=== PATIENT | male | born 1935 | race Caucasian/White ===

== ENCOUNTER 2021-06-09 17:20 | Emergency (ER) | payer MEDICARE ==
--- NOTE | 2021-06-09 18:01 | EDM.PDOC ---
ED HPI GENERAL MEDICAL PROBLEM - General Chief Complaint: Neurological Problem Stated Complaint: confusion, dizzy, shakey Time Seen by Provider: 06/09/21 17:53 Source of Information: Reports: Patient, Family (Spouse) History Limitations: Reports: No Limitations - History of Present Illness INITIAL COMMENTS - FREE TEXT/NARRATIVE: Felipe is a 85-year-old male who was from [place], [place] presenting to the ED for evaluation of transient altered mental status. The patient was at the casino in [place] today and was driving home with his when he suddenly became disoriented and dizzy. He kept repeatedly saying to his I do not aware of him driving it on or were at. His instructed him to pull the vehicle over and she sought help. states that his altered mental status lasted about 20 to 30 minutes and occurred around 1430 hrs. today (3-1/2 hours prior to arrival). The patient did not experience any weakness, numbness or tingling but did have disorientation. According to the patient and his he has had increasing episodes of dizziness that have been transient for about the last 6 weeks. The was concerned that he may have had a "mini stroke". By the time they arrived in [place], [place] the patient had regained orientation and was able to drive the back roads to the cabin that they are currently renting. The patient does not have any symptoms. - Related Data Allergies Allergy/AdvReac Type Severity Reaction Status Date / Time No Known Allergies Allergy Verified 06/09/21 17:45 Home Meds: Home Meds Aspirin [Adult Low Dose Aspirin EC] 81 mg PO DAILY 06/09/21 [History] Atenolol/Chlorthalidone [Atenolol-Chlorthalidone 50-25] 1 tab PO DAILY 06/09/21 [History] Simvastatin 40 mg PO BEDTIME 06/09/21 [History] allopurinoL [Zyloprim] 300 mg PO DAILY 06/09/21 [History] Past Medical History HEENT History: Reports: Cataract Cardiovascular History: Reports: CAD, High Cholesterol, Hypertension Respiratory History: Reports: None Gastrointestinal History: Reports: Cholelithiasis Genitourinary History: Reports: None Musculoskeletal History: Reports: Arthritis, Gout, Osteoarthritis, RA Neurological History: Reports: Concussion Psychiatric History: Reports: None Endocrine/Metabolic History: Reports: None Hematologic History: Reports: None Immunologic History: Reports: None Oncologic (Cancer) History: Reports: Basal Cell Carcinoma, Malignant Melanoma Dermatologic History: Reports: None - Infectious Disease History Infectious Disease History: Reports: Chicken Pox, Novel Coronavirus - Past Surgical History HEENT Surgical History: Reports: Cataract Surgery, Tonsillectomy Cardiovascular Surgical History: Reports: Valve Replacement Other Cardiovascular Surgeries/Procedures: aortic GI Surgical History: Reports: Cholecystectomy Neurological Surgical History: Reports: C-Spine, Spinal Fusion Musculoskeletal Surgical History: Reports: Hip Replacement, Knee Replacement, Other (See Below) Other Musculoskeletal Surgeries/Procedures:: finger joint replacement ED ROS GENERAL - Review of Systems Review Of Systems: See Below Constitutional: Reports: No Symptoms HEENT: Reports: No Symptoms Respiratory: Reports: No Symptoms Cardiovascular: Reports: No Symptoms Endocrine: Reports: No Symptoms GI/Abdominal: Reports: No Symptoms : Reports: No Symptoms Musculoskeletal: Reports: No Symptoms Skin: Reports: No Symptoms Neurological: Reports: Confusion (Transient confusion lasting about 20 minutes) Psychiatric: Reports: No Symptoms Hematologic/Lymphatic: Reports: No Symptoms Immunologic: Reports: No Symptoms - Physical Exam Exam: See Below Exam Limited By: No Limitations General Appearance: Alert, No Apparent Distress Eye Exam: Bilateral Eye: EOMI, PERRL Ears: Normal External Exam Nose: Normal Inspection, Normal Mucosa Throat/Mouth: Normal Inspection, Normal Lips, Normal Oropharynx, Normal Voice, No Airway Compromise Head Exam: Atraumatic, Normocephalic Neck: Normal Inspection, Supple, Non-Tender, Full Range of Motion. No: Carotid Bruit Respiratory/Chest: No Respiratory Distress, Lungs Clear, Normal Breath Sounds Cardiovascular: Normal Peripheral Pulses, Regular Rate, Rhythm, Systolic Murmur (3/6 systolic ejection murmur. Patient has a TAVR.) GI/Abdominal: Normal Bowel Sounds, Soft, Non-Tender Neuro Exam (Abbreviated): Alert, Oriented, CN II-XII Intact, Normal Cognition, Normal Reflexes, No Motor/Sensory Deficits Back Exam: Normal Inspection Extremities: Normal Inspection, Normal Range of Motion Psychiatric: Normal Affect, Normal Mood Skin Exam: Warm, Dry, Intact, Normal Color Course - Vital Signs Last Recorded V/S: Last Vital Signs Temp 36.2 C 06/09/21 17:42 Pulse 67 06/09/21 18:50 Resp 11 L 06/09/21 18:50 BP 139/70 06/09/21 18:50 Pulse Ox 93 L 06/09/21 18:50 - Orders/Labs/Meds Orders: Active Orders 24 hr Category Date Time Status UA W/MICROSCOPIC [URIN] Stat Lab 06/09/21 19:45 Received Labs: Laboratory Tests 06/09/21 06/09/21 06/09/21 Range/Units 18:01 18:01 18:01 WBC 7.0 (4.5-11.0) K/uL RBC 4.39 (4.30-5.90) M/uL Hgb 15.0 (12.0-15.0) g/dL Hct 42.3 (40.0-54.0) % MCV 96 (80-98) fL MCH 34 H (27-31) pg MCHC 36 (32-36) % Plt Count 143 L (150-400) K/uL Neut % (Auto) 76.2 H (36-66) % Lymph % (Auto) 12.7 L (24-44) % [place] % (Auto) 9.8 H (2-6) % Eos % (Auto) 0.9 L (2-4) % Baso % (Auto) 0.4 (0-1) % PT 10.1 (9.2-10.6) sec INR 1.0 APTT 25.2 (21.4-31.8) sec Sodium 135 L (140-148) mmol/L Potassium 4.0 (3.6-5.2) mmol/L Chloride 98 L (100-108) mmol/L Carbon Dioxide 26 (21-32) mmol/L Anion Gap 15.0 H (5.0-14.0) mmol/L BUN 17 (7-18) mg/dL Creatinine 1.0 (0.8-1.3) mg/dL Est Cr Clr Drug Dosing 65.72 mL/min Estimated GFR (MDRD) > 60 (>60) Glucose 87 (74-106) mg/dL Calcium 8.8 (8.5-10.1) mg/dL Total Bilirubin 0.7 (0.2-1.0) mg/dL AST 30 (15-37) U/L ALT 32 (12-78) U/L Alkaline Phosphatase 75 (46-116) U/L Total Protein 6.7 (6.4-8.2) g/dL Albumin 3.6 (3.4-5.0) g/dL Globulin 3.1 (2.3-3.5) g/dL Albumin/Globulin Ratio 1.2 (1.2-2.2) - Radiology Interpretation Free Text/Narrative:: I reviewed the imaging of the CT of the head without contrast as well as the report which states unremarkable for noncontrast head CT. There is no evidence for acute hemorrhage, mass, or midline shift with normal fine-white differentiation. - Re-Assessments/Exams Free Text/Narrative Re-Assessment/Exam: 06/09/21 20:01 I reviewed the patient's labs showing a normal CBC, PT and PTT, and comprehensive metabolic panel. The CT of the brain without contrast was also unremarkable. His symptoms have completely resolved so this is either going to be a transient ischemic attack or transient global amnesia. He is not taking a full aspirin at this time I would recommend that he start a full aspirin. He may want to talk to his primary care provider about Plavix if we think this is possibly an embolic event especially since he is as a TAVR. Departure - Departure Time of Disposition: 20:03 Disposition: Home, Self-Care 01 Clinical Impression: Transient ischemic attack, Transient global amnesia - Discharge Information Instructions: Transient Ischemic Attack, [id number], Transient Global Amnesia Referrals: PCP,None [Primary Care Provider] - Forms: ED Department Discharge Care Plan Goals: Your work-up today suggest that you either had a transient ischemic attack or transient global amnesia. Both of them can be due to embolic events. I would recommend starting a full aspirin daily to help decrease the likelihood of embolic events. 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 Only return to the emergency room should you have any recurrence of your symptoms. Sepsis Event Note (ED) - Focused Exam Vital Signs: Vital Signs Temp Pulse Resp BP Pulse Ox 06/09/21 18:50 67 11 L 139/70 93 L 06/09/21 17:42 36.2 C 75 16 155/88 H 95 06/09/21 17:40 36.2 C 75 16 155/88 H 95 - Problem List & Annotations (1) Transient global amnesia SNOMED Code(s): 181374526 Code(s): G45.4 - TRANSIENT GLOBAL AMNESIA Status: Acute Priority: High Current Visit: Yes (2) Transient ischemic attack SNOMED Code(s): 874244893 Code(s): G45.9 - TRANSIENT CEREBRAL ISCHEMIC ATTACK, UNSPECIFIED Status: Acute Priority: High Current Visit: Yes - Problem List Review Problem List Initiated/Reviewed/Updated: Yes - My Orders Last 24 Hours: My Active Orders 06/09/21 19:45 UA W/MICROSCOPIC [URIN] Stat - Assessment/Plan Last 24 Hours: My Active Orders 06/09/21 19:45 UA W/MICROSCOPIC [URIN] Stat
--- NOTE | 2021-06-09 18:31 | CRLCT ---
For Patients: As a result of the Century Cures Act, medical imaging exams and procedure reports are released immediately into your electronic medical record. You may view this report before your referring provider. If you have questions, please contact your health care provider. INDICATION: Transient dizziness and disorientation TECHNIQUE: CT head without contrast. COMPARISON: None FINDINGS: CSF spaces: Within normal limits for age. Brain parenchyma: The fine-white differentiation is normal. No sign of mass, hemorrhage, or midline shift. Skull base and calvarium: The visualized paranasal sinuses and mastoid air cells demonstrate no acute or significant findings. The visualized orbits are grossly unremarkable. No skull fractures. IMPRESSION: Unremarkable noncontrast head CT. Dictated by Delfino Pardo MD @ 06/09/2021 6:31:09 PM Please note that all CT scans at this facility use dose modulation, iterative reconstruction, and/or weight-based dosing when appropriate to reduce radiation dose to as low as reasonably achievable. Dictated by: Delfino Pardo MD @ 06/09/2021 18:31:16 (Electronically Signed)
== END 2021-06-09 20:30 | disposition home or self-care (01) ==
LOC: JP.ED 17:20
DX: G45.9 Transient cerebral ischemic attack, unspecified (principal); I25.10 Atherosclerotic heart disease of native coronary artery without angina pectoris; E78.00 Pure hypercholesterolemia, unspecified; I10 Essential (primary) hypertension; M10.9 Gout, unspecified; Z79.82 Long term (current) use of aspirin; Z79.899 Other long term (current) drug therapy
CPT/HCPCS: 36415; 70450; 80053; 81001; 85025; 85610; 85730; 99285-25